=== PATIENT | male | born 1945 | race Caucasian/White ===

== ENCOUNTER → 2016-12-12 | Outpatient (CLI) | payer OTHER, BC ==
[~2016-12-12] MED LIST: ASPEC325 PO; CALC500C3 PO; LISI-725 PO; MISCCAP80 PO; NAPR1TAB9 PO; SIMV40TA2 PO
== END | disposition home or self-care (01) ==
LOC: C.LAB 13:19
PROVIDERS: ATTEND Urology
DX: C61 Malignant neoplasm of prostate (principal)

== ENCOUNTER 2017-02-06 19:57 | Emergency (ER) | payer OTHER, BC ==
[~2017-02-06] VITALS: Ht 180.3 cm; Wt 105.8 kg
[2017-02-06 20:00] VITALS: Ht 180.3 cm; Wt 105.8 kg
[2017-02-06] MEDS ORDERED: ACETAMINOPHEN 500 MG TAB PO STA (20:13)
[2017-02-06] MEDS ORDERED: SODIUM CHLORIDE 0.9% 1000ML 1,000 ML IV STA (20:13)
--- NOTE | 2017-02-06 20:19 | EMERGENCY ROOM VISIT NOTE ---
History Report prepared by Tarik: Pipe Bullock Under the Supervision of: Dr. Neo Dtoson M.D. First contact with patient: 20:07 Chief Complaint: CONGESTION Stated Complaint: CHEST CONGESTION,DIARRHEA,ACHES ALL OVER History of Present Illness The patient is a 71 year old male who presents to the Emergency Room with complaints of constant congestion beginning last night. The patient states that he took Tylenol this morning with no relief of his symptoms. He also complains of a cough that is not productive, body aches, rhinorrhea, fever, diarrhea, and mild back pain. He denies vomiting, urinary symptoms, and known recent sick contacts. He notes that he experienced similar symptoms when he was diagnosed with a UTI. He reports that does not have a history of COPD, diabetes, and heart attacks. He reports that he received a flu shot this year. Source of History: patient Onset: last night Position: chest Quality: other (congestion) Timing: constant Associated Symptoms: + fevers, + cough (not productive), + back pain (mild) , + diarrhea, No vomiting, No urinary symptoms Note: He also complains of body aches and rhinorrhea. Review of Systems See HPI for pertinent positives & negatives. A total of 10 systems reviewed and were otherwise negative. Past Medical & Surgical Medical Problems: (1) No chronic problems Surgical Problems: (1) History of cholecystectomy (2) History of prostatectomy Family History Diabetes mellitus FHx: cancer FHx: gallbladder disease Kidney disease Kidney stones Social History Smoking Status: Never Smoker Marital Status: Housing Status: lives with family Occupation Status: retired Current/Historical Medications Scheduled Lisinopril (Zestril), 20 MG PO QAM Mirabegron (Myrbetriq Er), 25 MG PO DAILY Oseltamivir (Tamiflu), 75 MG PO BID Simvastatin (Zocor), 40 MG PO QPM Allergies Coded Allergies: No Known Allergies (Verified , 02/06/17) Physical Exam Vital Signs Date Time Temp Pulse Resp B/P (MAP) Pulse Ox O2 Delivery O2 Flow Rate FiO2 02/06/17 21:29 37.9 70 20 134/71 96 02/06/17 20:08 95 Room Air 02/06/17 20:00 37.7 96 20 147/76 100 Room Air Physical Exam GENERAL: Patient is well appearing and in no acute distress. HEENT: No acute trauma, normocephalic atraumatic, mucous membranes dry, no scleral icterus. Rhinorrhea bilaterally, mild posterior pharyngeal erythema. NECK: No stridor, no adenopathy, no meningismus, trachea is midline. LUNGS: No dyspnea. Clear to auscultation and equal bilaterally. No wheeze, no rhonchi. HEART: Regular rhythm, mildly tachycardic. No murmurs, rubs, gallops appreciated. ABDOMEN: Soft, nontender, bowel sounds positive, no masses appreciated, no peritonitis. BACK: No midline tenderness, no CVA tenderness EXTREMITIES: Normal motion all extremities, no cyanosis, no edema. NEUROLOGIC: Alert and oriented, no acute motor or sensory deficits, no focal weakness, cranial nerves grossly intact. SKIN: No rash, no jaundice, no diaphoresis. Medical Decision & Procedures ER Provider Diagnostic Interpretation: Radiology results and stated below per my review and radiologist interpretation: CHEST ONE VIEW PORTABLE FINDINGS: Atherosclerosis of the aortic arch. Cardiac silhouette normal in size. Lungs and pleural spaces clear. Degenerative changes of the thoracic spine. Upper abdomen normal. IMPRESSION: 1. No acute cardiopulmonary disease. Electronically signed by: Freddy Robin M.D. 02/06/2017 8:23 PM Laboratory Results 02/06/17 20:30 Red Blood Count 4.70, Mean Corpuscular Volume 89.1, Mean Corpuscular Hemoglobin 31.1, Mean Corpuscular Hemoglobin Concent 34.8, Mean Platelet Volume 11.3, Neutrophils (%) (Auto) 84.1, Lymphocytes (%) (Auto) 6.8, Monocytes (%) (Auto) 8.1, Eosinophils (%) (Auto) 0.4, Basophils (%) (Auto) 0.3, Neutrophils # (Auto) 6.30, Lymphocytes # (Auto) 0.51, Monocytes # (Auto) 0.61, Eosinophils # (Auto) 0.03, Basophils # (Auto) 0.02 02/06/17 20:30 Test 02/06/17 20:18 02/06/17 20:30 Influenza Type A Antigen POS for Influ A (NEG) Influenza Type B Antigen Neg for Influ B (NEG) White Blood Count 7.49 K/uL (4.8-10.8) Red Blood Count 4.70 M/uL (4.7-6.1) Hemoglobin 14.6 g/dL (14.0-18.0) Hematocrit 41.9 % (42-52) Mean Corpuscular Volume 89.1 fL (80-100) Mean Corpuscular Hemoglobin 31.1 pg (25-34) Mean Corpuscular Hemoglobin Concent 34.8 g/dl (32-36) Platelet Count 146 K/uL (130-400) Mean Platelet Volume 11.3 fL (7.4-10.4) Neutrophils (%) (Auto) 84.1 % Lymphocytes (%) (Auto) 6.8 % Monocytes (%) (Auto) 8.1 % Eosinophils (%) (Auto) 0.4 % Basophils (%) (Auto) 0.3 % Neutrophils # (Auto) 6.30 K/uL (1.4-6.5) Lymphocytes # (Auto) 0.51 K/uL (1.2-3.4) Monocytes # (Auto) 0.61 K/uL (0.11-0.59) Eosinophils # (Auto) 0.03 K/uL (0-0.5) Basophils # (Auto) 0.02 K/uL (0-0.2) RDW Standard Deviation 45.1 fL (36.4-46.3) RDW Coefficient of Variation 13.8 % (11.5-14.5) Immature Granulocyte % (Auto) 0.3 % Immature Granulocyte # (Auto) 0.02 K/uL (0.00-0.02) Anion Gap 8.0 mmol/L (3-11) Est Creatinine Clear Calc Drug Dose 72.5 ml/min Estimated GFR () 71.8 Estimated GFR (Non- 62.0 BUN/Creatinine Ratio 11.7 (10-20) Calcium Level 8.7 mg/dl (8.5-10.1) Laboratory results as reviewed by me. Medications Administered Medications (Trade) Dose Ordered Sig/Jonas Route Start Time Stop Time Status Last Admin Dose Admin Sodium Chloride 1,000 ml @ 999 mls/hr Q1H1M STAT IV 02/06/17 20:13 02/06/17 21:13 DC 02/06/17 20:41 999 MLS/HR Acetaminophen (Tylenol Tab) 1,000 mg NOW STAT PO 02/06/17 20:13 02/06/17 20:15 DC 02/06/17 20:41 1,000 MG Oseltamivir Phosphate (Tamiflu Cap) 75 mg NOW STAT PO 02/06/17 21:06 02/06/17 21:07 DC 02/06/17 21:20 75 MG ED Course 2007: The patient was evaluated in room B2. A complete history and physical exam was performed. 2012: Acetaminophen 1000mg PO, Sodium Chloride 1000 ml @ 999 mls/hr 2102: I reevaluated and updated the patient. He is feeling better. 2105: Tamiflu Cap 75mg PO 2115: Reevaluated the patient. Discussed results and discharge instructions: he verbalized understanding and agreement. The patient is ready for discharge. Medical Decision Differential: Viral, Pharyngitis, Cellulitis, Pneumonia, Influenza, Meningitis, Sepsis, Bacteremia, UTI/Pyelonephritis, Endocrine, Toxicologic, amongst other pathologies entertained. 71 yr old male with URI symptoms as well as body aches, fatigue, and malaise. Flu A positive. Given fluids and feeling better. Reviewed Flu conservative Tx but with his age/history will go ahead and start Tamiflu after discussing this medication with him and . Stable and breathing comfortably and is ok with plan. Reviewed symptoms RTED. Medication Reconcilliation Current Medication List: was personally reviewed by me Blood Pressure Screening Patient's blood pressure: Elevated blood pressure Blood pressure disposition: Elevated BP felt to be situational Impression Primary Impression: Influenza A Scribe Attestation The scribe's documentation has been prepared under my direction and personally reviewed by me in its entirety. I confirm that the note above accurately reflects all work, treatment, procedures, and medical decision making performed by me. Departure Information Dispostion Home / Self-Care Prescriptions Oseltamivir (Tamiflu) 75 Mg Cap 75 MG PO BID, #10 CAP Prov: Neo Dotson M.D. 02/06/17 Referrals Андрей Sevilla III, M.D. Forms HOME CARE DOCUMENTATION FORM, IMPORTANT VISIT INFORMATION Patient Instructions ED Flu, My [facility]
[2017-02-06] MEDS ORDERED: MYR25 PO (20:22)
--- NOTE | 2017-02-06 20:24 | DIAGNOSTIC IMAGING REPORT ---
CHEST ONE VIEW PORTABLE CLINICAL HISTORY: 71 years-old Male presenting with cough, fever. TECHNIQUE: Portable upright AP view of the chest was obtained. COMPARISON: None. FINDINGS: Atherosclerosis of the aortic arch. Cardiac silhouette normal in size. Lungs and pleural spaces clear. Degenerative changes of the thoracic spine. Upper abdomen normal. IMPRESSION: 1. No acute cardiopulmonary disease. Electronically signed by: Freddy Robin M.D. 02/06/2017 8:23 PM Dictated Date/Time: 02/06/2017 8:22 PM
[2017-02-06 20:45] LABS: BASO % 0.3 %; BASO ABS # 0.02 K/uL (0-0.2); COMPLETE YES; EOS % 0.4 %; HEMATOCRIT 41.9 % (42-52); IG% 0.3 %; LYMPH % 6.8 %; LYMPH ABS # 0.51 K/uL (1.2-3.4); MEAN CELL VOLUME 89.1 fL (80-100); MEAN CORPUSCULAR HEMOGLOBIN 31.1 pg (25-34); MEAN CORPUSCULAR HGB CONC 34.8 g/dl (32-36); MEAN PLATELET VOLUME 11.3 fL (7.4-10.4); MONO % 8.1 %; NEUT % 84.1 %; PLATELET COUNT 146 K/uL (130-400); WHITE BLOOD COUNT 7.49 K/uL (4.8-10.8)
[2017-02-06 21:04] LABS: BUN/CREATININE RATIO 11.7 (10-20); CALCIUM 8.7 mg/dl (8.5-10.1); CREATININE 1.19 mg/dl (0.60-1.40)
[2017-02-06] MEDS ORDERED: OSELTAMIVIR PHOSPHATE 75 MG CAP PO STA (21:06)
[2017-02-06] MEDS ORDERED: OSEL75CA12 PO (21:07)
[2017-02-06 21:29] VITALS: BP 134/71; PULSE 70; TEMP 37.9; O2SAT 96
== END 2017-02-06 21:31 | disposition home or self-care (01) ==
LOC: C.EDB 19:58
DX: J09.X2 Influenza due to identified novel influenza A virus with other respiratory manifestations (principal); Z87.440 Personal history of urinary (tract) infections; Z90.49 Acquired absence of other specified parts of digestive tract; Z98.890 Other specified postprocedural states; Z79.899 Other long term (current) drug therapy; Z83.3 Family history of diabetes mellitus; Z80.9 Family history of malignant neoplasm, unspecified; Z83.79 Family history of other diseases of the digestive system; Z84.1 Family history of disorders of kidney and ureter

== ENCOUNTER → 2017-09-22 | Outpatient (CLI) | payer OTHER, BC ==
[~2017-09-22] MED LIST changes: -ASPEC325 PO; -CALC500C3 PO; -MISCCAP80 PO; +MYR25 PO; -NAPR1TAB9 PO
--- NOTE | 2017-09-22 10:33 | DIAGNOSTIC IMAGING REPORT ---
R INJ MAJOR JNT SHLDR,HIP,KNEE CLINICAL HISTORY: DJD RT HIPpain COMPARISON STUDY: None FLUOROSCOPY TIME: 10 seconds. FINDINGS: Following description of the procedure and informed consent, a 25-gauge needle was inserted to the right hip joint space. Test injection confirmed its intra-articular location. This is followed by therapeutic steroid injection per physician order. IMPRESSION: Successful therapeutic right hip joint injection The above report was generated using voice recognition software. It may contain grammatical, syntax or spelling errors. Electronically signed by: Hernán Javed M.D. 09/22/2017 10:32 AM Dictated Date/Time: 09/22/2017 10:31 AM
== END | disposition home or self-care (01) ==
LOC: C.RADBC 09:26
PROVIDERS: ATTEND Orthopaedic Surgery
DX: M16.11 Unilateral primary osteoarthritis, right hip (principal)

== ENCOUNTER → 2017-10-05 | Outpatient (CLI) | payer OTHER, BC ==
--- NOTE | 2017-10-05 14:29 | DIAGNOSTIC IMAGING REPORT ---
LEFT HIP INJECTION UNDER FLUOROSCOPIC GUIDANCE CLINICAL HISTORY: Degenerative joint disease. Steroid injection. PROCEDURE: The risks, benefits, and alternatives to the procedure were discussed with the patient. Written informed consent was obtained. The patient was placed supine on the fluoroscopy table, and a left hip injection was performed under fluoroscopic guidance. The area was prepped and draped in the usual sterile fashion. The skin and soft tissues anesthetized with local 1% lidocaine. The left hip joint was accessed utilizing a 22-gauge needle, and intra-articular positioning was confirmed by injecting a small volume of Optiray 300. The prescribed dosage of 5 cc of 0.5% bupivacaine and 2 cc of betamethasone was then injected into the joint space. A single spot fluoroscopic image was saved. The procedure was well tolerated and without immediate complication. The patient left the department in satisfactory condition. FLUOROSCOPY TIME: 8 seconds. IMPRESSION: Successful steroid injection of the left hip under fluoroscopic guidance. Electronically signed by: Niels Urias M.D. 10/05/2017 2:27 PM Dictated Date/Time: 10/05/2017 2:26 PM
== END | disposition home or self-care (01) ==
LOC: C.RADBC 12:56
PROVIDERS: ATTEND Orthopaedic Surgery
DX: M16.12 Unilateral primary osteoarthritis, left hip (principal)

== ENCOUNTER 2019-04-26 06:27 | Observation (INO) ==
--- NOTE | 2019-03-29 08:45 | PAT Medication Instructions ---
Medication Instructions Date of Service March 29, 2019 Home Medications acetaminophen [Tylenol Arthritis Pain] 1,300 mg PO Q8H PRN calcium carbonate [Tums] 1 tab PO DAILY PRN ibuprofen [Advil] 400 mg PO QID PRN lisinopril 40 mg PO QAM simvastatin 40 mg PO HS L. gasseri-B. bifidum-B longum [[facility]] 1 cap PO QAM ferrous sulfate [iron] 325 mg PO QAM ASK your surgeon for instructions ibuprofen [Advil] 400 mg PO QID PRN DO NOT take the morning of surgery calcium carbonate [Tums] 1 tab PO DAILY PRN lisinopril 40 mg PO QAM L. gasseri-B. bifidum-B longum [[facility]] 1 cap PO QAM ferrous sulfate [iron] 325 mg PO QAM Take morning of surgery With a small sip of water, OTHERWISE NOTHING TO EAT OR DRINK AFTER MIDNIGHT: acetaminophen [Tylenol Arthritis Pain] 1,300 mg PO Q8H PRN (okay to take up to 4 hours prior to surgery if needed) Take evening before surgery acetaminophen [Tylenol Arthritis Pain] 1,300 mg PO Q8H PRN (if needed) calcium carbonate [Tums] 1 tab PO DAILY PRN (if needed) simvastatin 40 mg PO HS Other Notes If you have any questions please call us at [phone] or [phone] or [phone] or [phone]
--- NOTE | 2019-04-01 10:18 | Anesthesiology Consultation ---
Date of Service April 01, 2019 Assessment & Plan (1) Encounter for pre-operative examination: Chart Review Chart Review: Acceptable Risk for Surgery and Patient seen in Pre Admission Testing Teaching & Discussion Pre-Anesthesia Teaching/Discussion Notes: Instructed NPO after midnight before surgery,except medications with 15 cc of water. Medication instructions provided according to the PAT guidelines. History Surgery Operation Date: 04/26/19 08:50 Proposed Procedures p Left Total Knee Arthroplasty - Ramone Esteves, Height/Weight Height: 5 ft 11 in Weight: 107.5 kg Allergies Allergy/AdvReac Type Severity Reaction Status Date / Time oxycodone [From OxyContin] Allergy Unknown RASH AND Verified 04/01/19 09:09 ITCHING Medications Home Medications Medication Instructions Recorded Confirmed Last Taken acetaminophen [Tylenol Arthritis 1,300 mg PO Q8H PRN 12/05/17 04/01/19 01/11/18 22:00 Pain] calcium carbonate [Tums] 1 tab PO DAILY PRN 12/05/17 04/01/19 Unknown ibuprofen [Advil] 400 mg PO QID PRN 12/05/17 04/01/19 Unknown lisinopril 40 mg PO QAM 12/05/17 04/01/19 01/11/18 08:00 simvastatin 40 mg PO HS 12/05/17 04/01/19 01/11/18 19:00 L. gasseri-B. bifidum-B longum 1 cap PO QAM 03/25/19 04/01/19 Unknown [[email or web address]] ferrous sulfate [iron] 325 mg PO QAM 03/25/19 04/01/19 Unknown Past Medical History Medical History Bakers cyst left knee Hearing deficit + hearing aids History of kidney stones History of prostate cancer 2000- s/p prostatectomy/XRT Hyperlipidemia Hypertension Obesity Osteoarthritis Exercise / Class Metabolic Activity III < 4 Walking/Shop/Light housework Past Family History Family History Mother Family history of diabetes mellitus Past Surgical History Surgical History History of cholecystectomy History of prostatectomy History of right hip replacement Right PATRICIA: 01/12/18: SAB x 1 attempt at L4-L5 at [facility] History of tooth extraction Hx of colonoscopy Hx of total knee replacement right Past Anesthesia History No Hx of Anesthesia Complications and No Family Hx of Anesthesia Complications History of PONV No Hx of PONV and No Hx of Motion Sickness Social History Smoking Status: Former smoker Do You Dip or Chew Tobacco: No Smoking End Date: Quit 50 YR AGO Hx Alcohol Use: Yes Alcohol type: beer alcohol intake frequency: holidays/special occasions only Hx Substance Use: No Review of Systems Patient denies chest pain, shortness of breath, cough, wheezing, palpitations. Physical Exam Vital Signs VITALS BP 130/79 P 80 TEMP 97.6 SP02 94%RA RESP 18 PHYSICAL Full neck and c-spine range of motion. Full TMJ range of motion. TMD 3 finger breaths Mallampati Score 3 Dentition: intact, crowns on molars Lungs: clear throughout to auscultation Cardiac: regular rate and rhythm, no murmurs noted Spine: normal Carotid arteries: negative bruit Extremities: no edema Testing Laboratory Results 04/01/19 10:36 04/01/19 10:36 PT 10.1 Seconds (9.0-12.0) 04/01/19 10:36 INR 1.0 (0.9-1.1) 04/01/19 10:36 APTT 21.4 Seconds (21.0-31.0) 04/01/19 10:36 Hemoglobin A1c 5.9 % (4.5-5.6) H 04/01/19 10:36 Blood Type A Positive 04/01/19 10:36 Antibody Screen NEGATIVE 04/01/19 10:36 Electrocardiogram Date: 04/01/19 NSR at 77bpm. RBBB. Chest X-Ray Date: 04/01/19 Findings: + NAD Stress Test Date: 10/01/18 Type: exercise Stress ECHO negative for inducible ischemia. Mild cLVH. Grade 1 diastolic dysfunction. No significant valvular disease. 104% MPHR. 6.7 METS. EF 55-60%.
--- NOTE | 2019-04-01 10:59 | XRay Report ---
XR chest Pre-admission PA/Lat CLINICAL HISTORY: Preoperative chest COMPARISON STUDY: 12/11/2017 FINDINGS: The heart is the upper limits of normal in size. There is no failure. There is no focal pul monary consolidation. There are no pleural effusions.[ IMPRESSION: No active disease in the chest. ACT 112: Negative or not required by law. Electronically signed by: Enrike Navarrete M.D. 04/01/2019 10:58 AM
[2019-04-01 11:23] LABS: Basophils # (auto) 0.05 K/uL (0-0.2); Basophils % (auto) 0.6 %; Eosinophils # (auto) 0.25 K/uL (0-0.5); Hematocrit (blood only) 40.9 % (42-52); Hemoglobin 13.6 g/dL (14.0-18.0); Immature Granulocytes # (auto) 0.04 K/uL (0.00-0.02); Immature Granulocytes % (auto) 0.5 %; Lymphocytes # (auto) 1.63 K/uL (1.2-3.4); Lymphocytes % (auto) 19.7 %; Mean Corpuscular Hemoglobin 31.3 pg (25-34); Mean Corpuscular Hgb Conc 33.3 g/dL (32-36); Mean Platelet Volume 12.2 fL (7.4-10.4); Monocytes # (auto) 0.43 K/uL (0.11-0.59); Monocytes % (auto) 5.2 %; Neutrophils # (auto) 5.88 K/uL (1.4-6.5); Platelet Count 213 K/uL (130-400); RDW Coefficient of Variation 14.6 % (11.5-14.5); RDW Standard Deviation 49.6 fL (36.4-46.3); Red Blood Count 4.35 M/uL (4.7-6.1); White Blood Count 8.28 K/uL (4.8-10.8)
[2019-04-01 11:32] LABS: BUN Creatinine Ratio 15.6 (10-20); Calcium 9.5 mg/dl (8.5-10.1); Creatinine Clr Calc Pharmacy 67.6 ml/min; Est GFR (African American) 66.7; Est GFR (Non-African American) 57.6; Potassium 5.1 mmol/L (3.5-5.1)
[2019-04-01 11:37] LABS: Partial Thromboplastin Ratio 0.8; Partial Thromboplastin Time 21.4 Seconds (21.0-31.0); Prothrombin Time 10.1 Seconds (9.0-12.0)
[2019-04-01 12:40] LABS: Estimated Average Glucose 123 mg/dl; Hemoglobin A1C 5.9 % (4.5-5.6)
--- NOTE | 2019-04-02 06:07 | Electrocardiogram Report ---
Test Reason : Blood Pressure : / mmHG Vent. Rate : 077 BPM Atrial Rate : 077 BPM P-R Int : 174 ms QRS Dur : 126 ms QT Int : 416 ms P-R-T Axes : 062 079 023 degrees QTc Int : 470 ms Normal sinus rhythm Right bundle branch block Abnormal ECG When compared with ECG of 11-DEC-2017 11:57, No significant change was found Confirmed by Macho Rangel ([id number]) on 04/02/2019 6:06:38 AM Referred By: Ramone Esteves Confirmed By:Macho Rangel
[~2019-04-26 06:27] MED LIST changes: +ACETAMINOPHEN 500 MG TAB PO SCH; +CEFAZOLIN 2000MG 2,000 MG/15 ML SYR IV SCH; +FAMOTIDINE 20 MG TAB PO SCH; +GABAPENTIN 300 MG CAP PO SCH; -LISI-725 PO; +LR 500ML BOLUS, THEN 15ML/HR IV SCH; +LR 60ML/HR IV SCH; -MYR25 PO; +ROPIVACAINE 0.5% HCL/PF 150 MG, BUPIVACAINE 0.5% MPF 30 ML, EPINEPHrine 30MG/30ML (OR U... INSTIL SCH; -SIMV40TA2 PO; +TRANEXAMIC ACID 1,000 MG **IV Intra-op IV SCH; +TRANEXAMIC ACID 1,000 MG **IV Pre-op IV SCH; +dexAMETHasone 4 MG TAB PO SCH
[2019-04-26] MEDS ORDERED: BUPIVACAINE 0.5 % 5 MG/1 ML PF 10ML VIAL ONE (06:32)
[2019-04-26] MEDS ORDERED: ROPIVACAINE 0.5% 5 MG/ML 30 ML VIAL ONE (06:32)
--- NOTE | 2019-04-26 06:44 | History & Physical Report ---
Date of Service April 26, 2019 Assessment & Plan (1) Osteoarthritis of left knee: We will proceed with a left total knee arthroplasty. Postoperatively he will be placed on aspirin for DVT prophylaxis and kept overnight in the hospital for postoperative medical management. He plans to use energy physical therapy upon discharge. Wolf is a moderate risk for knee replacement surgery. Present on Admission?: Yes History of Present Illness Chief Complaint: Primary osteoarthritis of the left knee Primary Care Provider: Андрей Sevilla MD Wolf is a pleasant 73-year-old male who is been complaining of chronic increasing left knee pain. X-rays clinical examination are diagnostic for primary osteoarthritis of the left knee. He has a history of a right knee replacement done in November 2014 and has done well with that. After failing years of conservative treatment with his left knee, he has elected to proceed with a left total knee arthroplasty. Allergies Allergy/AdvReac Type Severity Reaction Status Date / Time oxycodone [From OxyContin] Allergy Unknown RASH AND Verified 04/01/19 09:09 ITCHING Home Medications Home Medications Medication Instructions Recorded Confirmed Type acetaminophen [Tylenol Arthritis 1,300 mg PO Q8H PRN 12/05/17 04/01/19 History Pain] calcium carbonate [Tums] 1 tab PO DAILY PRN 12/05/17 04/01/19 History ibuprofen [Advil] 400 mg PO QID PRN 12/05/17 04/01/19 History lisinopril 40 mg PO QAM 12/05/17 04/01/19 History simvastatin 40 mg PO HS 12/05/17 04/01/19 History L. gasseri-B. bifidum-B longum 1 cap PO QAM 03/25/19 04/01/19 History [[facility]] ferrous sulfate [iron] 325 mg PO QAM 03/25/19 04/01/19 History Past Med/Surg History Medical History Bakers cyst left knee Hearing deficit + hearing aids History of kidney stones History of prostate cancer 1999- s/p prostatectomy/XRT Hyperlipidemia Hypertension Obesity Osteoarthritis Surgical History History of cholecystectomy History of prostatectomy History of right hip replacement Right PATRICIA: 01/12/18: SAB x 1 attempt at L4-L5 at [facility] History of tooth extraction Hx of colonoscopy Hx of total knee replacement right Family History Mother Family history of diabetes mellitus Social History Preferred Language: Cymro Communication Ability: Effective Beliefs That Will Affect Care: None marital status: Current Living Situation: Spouse Feels Safe at Home: Yes Safety Concerns: Feels Safe At This Time Smoking Status: Former smoker Do You Dip or Chew Tobacco: No ; Smoking End Date: Quit 50 YR AGO ; Second Hand Exposure: No ; Hx Alcohol Use: Yes Alcohol type: beer Hx Substance Use: No Review of Systems Review of Systems: All systems reviewed & are unremarkable except as noted in HPI & below Physical Exam Constitutional: WD/WN, vitals as above Eyes: PERRL, conjunctivae normal, anicteric sclerae ENMT: external ear and nose normal, oropharynx normal Neck: trachea midline, no thyromegaly Respiratory: normal respiratory effort Cardiovascular: RRR, no murmur, no edema Gastrointestinal (Abdomen): normal bowel sounds, soft, nontender, no hepatosplenomegaly Musculoskeletal: On physical examination of the left knee there is a trace effusion. There is near full range of motion and no evidence of instability. There is significant tenderness palpation along the medial and lateral joint lines and over the distal femoral condyles. Psychiatric: A+Ox3, euthymic affect Results & Data Diagnostic Findings Radiographs of the left knee demonstrate advanced osteoarthritis with joint space narrowing osteophyte formation and hise-ew-suld articulation. PG Care Time/CCT Total # of Minutes Spent Total Time Spent with Patient: Total time spent is greater than 50% in coordination of care (as documented) at patient's floor/unit and/or counseling patient: Coding Level of Care Code 56966 Initial Inpt Care Lvl 3 Diagnoses Osteoarthritis of left knee M17.12
[2019-04-26] MEDS ORDERED: MIDAZOLAM HCL 1 MG/ML 2ML VIAL ONE ×2 (06:56)
[2019-04-26] MEDS ORDERED: ORTHO JOINT ANESTHETIC ONE (07:05)
[2019-04-26] MEDS ORDERED: LIDOCAINE HCL 2% 2 ML VIAL/AMP(20MG/ML) INFIL ONE (08:49)
[2019-04-26] MEDS ORDERED: PROPOFOL IV EMULSION 10 MG/ML 20 ML VIAL IV ONE ×2 (08:49→09:35)
[2019-04-26] MEDS ORDERED: PHENYLEPHRINE 100MCG/ML 5ML SYR ONE (09:18)
--- NOTE | 2019-04-26 10:27 | Anesthesiology Progress Note ---
Date of Service April 26, 2019 Anesthesia Post Procedure Vital Signs Vital Signs: Temp Pulse Pulse Resp BP Pulse Ox 04/26/19 10:15 79 15 95/63 L 98 04/26/19 10:09 36.7 C 83 16 112/66 98 04/26/19 07:06 36.7 C 88 22 143/74 H 94 Pain Intensity Left Posterior Knee: Pain Intensity: 1 Transfer of Care Handoff Completed per policy Notes Mental Status: alert / awake / arousable Patient Amnestic to Procedure: Yes Nausea / Vomiting: adequately controlled Pain: adequately controlled Airway Patency, RR, SpO2: stable & adequate BP & HR: stable & adequate Hydration State: stable & adequate Anesthetic Complications: no major complications apparent
--- NOTE | 2019-04-26 10:28 | XRay Report ---
XR knee LT 1 or 2V routine HISTORY: 73 years-old Male Surgical Post Op left knee total joint arthroplasty COMPARISON: Knee radiographs 12/31/2018 TECHNIQUE: 2 views of the left knee FINDINGS: Left knee total joint arthroplasty and patella resurfacing. Satisfactory alignment without acute frac ture or retained foreign body. Anterior midline skin kristopher are noted along with expected postsurgic al soft tissue swelling and deep tissue air with surgical drainage catheter. IMPRESSION: Left knee total joint arthroplasty and patella resurfacing with expected postoperative ch anges. ACT 112: Negative or not required by law. The above report was generated using voice recognition software. It may contain grammatical, syntax o r spelling errors. Electronically signed by: Oniel Jesus M.D. 04/26/2019 10:27 AM
[2019-04-26] MEDS ORDERED: METOCLOPRAMIDE HCL INJ 5 MG/ML 2 ML VIAL IV PRN (11:02)
[2019-04-26] MEDS ORDERED: MAGNESIUM HYDROXIDE SUSP 30 ML UDC PO PRN (11:02)
[2019-04-26] MEDS ORDERED: HYDROCODONE/ACETAMOPHEN 5/325MG TAB PO PRN ×2 (11:02→13:30)
[2019-04-26] MEDS ORDERED: ONDANSETRON INJ 2 MG/ML 2 ML VIAL IV PRN (11:02)
[2019-04-26] MEDS ORDERED: HYDROmorphone INJ 0.5 MG/0.5 ML SYR IV PRN (11:02)
[2019-04-26] MEDS ORDERED: NALOXONE HCL 0.4 MG/1 ML VIAL/CARP IV PRN (11:02)
[2019-04-26] MEDS ORDERED: bisacodyL 10 MG SUPP PR PRN (11:02)
[2019-04-26] MEDS: SODIUM CHLORIDE 0.9% 1000ML 1,000 ML IV SCH ×2 (12:38→21:42)
[2019-04-26] MEDS: KETOROLAC TROMETHAMINE 15 MG/ML VIAL IV SCH ×2 (12:42→18:15)
[2019-04-26] MEDS: ACETAMINOPHEN 500 MG TAB PO SCH ×2 (13:31→21:42)
[2019-04-26] MEDS: CEFAZOLIN 2000MG 2,000 MG/15 ML SYR IV SCH (17:10)
[2019-04-26] MEDS: DOCUSATE SODIUM 100 MG CAP PO SCH (20:10)
[2019-04-26] MEDS: ASPIRIN 81 MG ECTAB PO SCH (20:11)
[2019-04-26] MEDS ORDERED: SENNA 8.6 MG TAB PO SCH (21:00)
[2019-04-26] MEDS ORDERED: SIMVASTATIN 40 MG TAB PO SCH (21:00)
[2019-04-27] MEDS: KETOROLAC TROMETHAMINE 15 MG/ML VIAL IV SCH ×2 (00:02→05:40)
[2019-04-27] MEDS: CEFAZOLIN 2000MG 2,000 MG/15 ML SYR IV SCH (00:02)
[2019-04-27] MEDS: ACETAMINOPHEN 500 MG TAB PO SCH (05:40)
[2019-04-27 06:04] LABS: Hematocrit (blood only) 33.7 % (42-52); Hemoglobin 11.3 g/dL (14.0-18.0); Mean Corpuscular Hemoglobin 31.2 pg (25-34); Mean Corpuscular Hgb Conc 33.5 g/dL (32-36); Mean Corpuscular Volume 93.1 fL (80-100); Mean Platelet Volume 11.8 fL (7.4-10.4); Platelet Count 185 K/uL (130-400); RDW Coefficient of Variation 13.8 % (11.5-14.5); RDW Standard Deviation 47.1 fL (36.4-46.3); Red Blood Count 3.62 M/uL (4.7-6.1); White Blood Count 17.48 K/uL (4.8-10.8)
[2019-04-27 06:30] LABS: BUN Creatinine Ratio 22.3 (10-20); Calcium 8.2 mg/dl (8.5-10.1); Creatinine Clr Calc Pharmacy 58.6 ml/min; Est GFR (African American) 56.2; Est GFR (Non-African American) 48.5; Potassium 4.6 mmol/L (3.5-5.1)
--- NOTE | 2019-04-27 07:38 | Orthopedic Progress Note ---
Date of Service April 27, 2019 Assessment & Plan (1) History of left knee replacement: Overall he is doing very well. He is not having much pain in the left knee. He will be seen by physical therapy today for ambulation and range of motion exercises. He is on aspirin for DVT prophylaxis. He can be discharged home later today. He will follow-up with orthopedics in 2 weeks. Present on Admission?: Yes Subjective Ed was seen and examined at bedside this morning. Overall is doing very well. Is not having much pain in his left knee. He was up and ambulating around the nurses station yesterday. He has no complaints. Physical Exam Musculoskeletal: On physical examination of the left knee, the dressing is clean and dry. He has active dorsiflexion and plantarflexion of his left ankle. His left knee is out to full extension. Results & Data ([facility]) Vital Signs (Past 12 Hours) Vital Signs Temp Pulse Resp BP Pulse Ox 04/27/19 03:18 36.6 C 100 H 18 136/71 95 04/26/19 23:42 36.8 C 102 H 18 125/71 95 Laboratory Results H & H 04/01/19 04/27/19 Range/Units 10:36 05:09 Hgb 13.6 L 11.3 L (14.0-18.0) g/dL Hct 40.9 L 33.7 L (42-52) % Coagulation 04/01/19 Range/Units 10:36 INR 1.0 (0.9-1.1) Diagnostic Findings Postoperative x-rays of the left knee show the prosthesis to be in anatomic alignment without any evidence of fracture, dislocation, or loosening. PG Care Time/CCT Total # of Minutes Spent Total Time Spent with Patient: Total time spent is greater than 50% in coordination of care (as documented) at patient's floor/unit and/or counseling patient: Coding Level of Care Code None Diagnoses History of left knee replacement Z96.652
--- NOTE | 2019-04-27 07:39 | Discharge Summary ---
Date of Service April 27, 2019 Admission HPI Per Admitting Provider Wolf is a pleasant 73-year-old male who is been complaining of chronic increasing left knee pain. X-rays clinical examination are diagnostic for primary osteoarthritis of the left knee. He has a history of a right knee replacement done in November 2014 and has done well with that. After failing years of conservative treatment with his left knee, he has elected to proceed with a left total knee arthroplasty. Principal Diagnosis Left total knee arthroplasty Discharge Data Allergies Allergy/AdvReac Type Severity Reaction Status Date / Time oxycodone [From OxyContin] Allergy Intermediate RASH AND Verified 04/26/19 06:54 ITCHING Consultations 04/26/19 11:02 Consult Case Management - Discharge Planning Routine Procedures Performed Operation Date: 04/26/19 08:30 Actual Procedures p Left Total Knee Arthroplasty(Left) - Ramone Esteves DO Ordered Studies 04/26/19 08:10 US - OR guided needle placemen Routine Hospital Course (1) History of left knee replacement: On April 26, 2019 Ed arrived at [facility] and underwent a left total knee arthroplasty without complication. He had a spinal anesthetic. Postoperatively he was started on aspirin for DVT prophylaxis and transferred to the general orthopedic floors. His hospital course was uneventful. On postop day #1 his H&H was stable and his pain was well controlled. He was able to participate well with physical therapy doing ambulation and range of motion exercises. He was then discharged home. He will follow-up with orthopedics in 2 weeks. Total Time Total Time Spent Total Time Spent (In Minutes): 20 Discharge Plan Discharge Items Patient Disposition: Home - Home Health Services Reason For Visit: Left Knee Degenerative Joint Disease Discharge Diagnosis: Left total knee arthroplasty Activity: As commented below Non-emergency contact: Surgeon Call non-emergency contact if: your wound has increased redness and your wound has increased drainage Follow-up/Referrals: Андрей Sevilla MD [Primary Care Provider] - Diet: Regular Addtl Attending Provider Instructions: Activity and Therapy Recommendations: * If you are using [facility] then therapy will be provided at your home until they feel you have accomplished all of your goals. * If you are using [facility] then Physical Therapy will be provided until they feel you are ready to start Outpatient Physical Therapy. * If you are not using home therapy then Outpatient Physical Therapy should st art about 3-5 days from your day of surgery. Therapy will last about 6-10 weeks * It is important not to put a pillow under your knee when you are relaxing or sleeping. It is just as important to make sure you are getting your knee perfectly straight as it is to regain your knee bend. * You were shown a series of exercises in the hospital. Do these exercises three times each day including the exercises you were shown in physical therapy. * Get up and walk several times each day. For the first four weeks, try not to stand or walk for more than one hour at a time. If you do stand or walk for mo re than one hour, you will not hurt anything, but your leg will likely swell. * As you feel comfortable, you may change from the walker or crutches to a cane and then to independent walking. Medications: * Narcotic You will likely be sent home from the hospital with a prescription for the narcotic pain medication that worked best throughout your stay. * Aspirin Most patients will be required to take Aspirin 81mg twice a day for 6 weeks after surgery. This is obtained [id number]-dclbrir and a prescription is not necessary. * Other medications may be prescribed for specific circumstances. If you have any questions, please call the office at . * Resume previous home medications unless otherwise instructed TEDs/Elastic Stockings: The white elastic stockings help limit swelling and prevent blood clots from forming in your legs.~ The more you wear them, the more they work. Wear them for six weeks. Dressing Care: If the incision is not draining then you may leave the kristopher open to air. If there is a little bit of drainage or if the kristopher are getting stuck on your clothing then cover the incision with a dry dressing. The kristopher will be removed at your 2 week follow-up appointment. Showering: You may shower 5 days from the day of surgery. Let the soapy shower water run over the kristopher and pat them dry. Do not scrub or soak the incision. Things To Watch For: * Drainage from the incision site that occurs more than one week after your surgery. * Increased redness at the incision site. * Fever above 102 degrees Fahrenheit. * Unusual chest pain or shortness of breath. * Call [facility] at with any of the above problems Follow-Up Visit: Follow-up with Dr. Esteves 2-3 weeks after your day of surgery. An appointment was probably scheduled when you signed-up for surgery in the office. If you have any questions call Office Instructions: More detailed instructions as well as Frequently Asked Questions were provided in a folder by our office when you signed-up for surgery. Please review these instructions when you get home. If you have any further questions or concerns, please feel free to call the office at [phone] Pending Studies at Discharge: No Stand-Alone Forms: [facility] Medications and DC Order Prescriptions: New hydrocodone-acetaminophen [[place]] 5-325 mg Tablet 1 tab PO Q6 PRN (Reason: pain) Qty: 30 RF: 0 aspirin 81 mg Tablet,Delayed Release (Dr/Ec) 81 mg PO BID 42 Days Qty: 0 RF: 0 Continued simvastatin 40 mg Tablet 40 mg PO HS RF: 0 acetaminophen [Tylenol Arthritis Pain] 650 mg Tablet Extended Release 1,300 mg PO Q8H PRN (Reason: Pain) RF: 0 calcium carbonate [Tums] 200 mg calcium (500 mg) Tablet,Chewable 1 tab PO DAILY PRN (Reason: Heartburn) RF: 0 ibuprofen [Advil] 200 mg Tablet 400 mg PO QID PRN (Reason: Pain) RF: 0 lisinopril 40 mg Tablet 40 mg PO QAM RF: 0 Metaversum 1.5 billion cell Capsule 1 cap PO QAM RF: 0 Discharge Orders: Discharge Order (Routine); Ordered 04/27/19 Ordered By: Ramone Esteves Admission Data Admit Date/Time: 04/26/19 10:14 Attending Provider: Ramone Esteves Admit Provider: Ramone Esteves Primary Care Provider: Андрей Sevilla Coding Level of Care Code D/C Day Management <30 mins Diagnoses History of left knee replacement Z96.652
[2019-04-27] MEDS ORDERED: dexAMETHasone 4 MG TAB PO SCH (08:00)
[2019-04-27] MEDS: DOCUSATE SODIUM 100 MG CAP PO SCH (08:24)
[2019-04-27] MEDS: ASPIRIN 81 MG ECTAB PO SCH (08:24)
[2019-04-27] MEDS ORDERED: MULTIVITAMIN TAB PO SCH (09:00)
[2019-04-27] MEDS ORDERED: lisinopriL 40 MG TAB PO SCH (09:00)
--- NOTE | 2019-05-02 12:27 | Operative Report ---
PG Post Operative Report Pre & Post Diagnosis Operation Date: 04/26/19 08:30 Pre-Op Diagnosis: Left Knee Degenerative Joint Disease Post-Op Diagnosis: Left Knee Degenerative Joint Disease I identified the patient and participated in the time-out.: Yes Procedure Operation Date: 04/26/19 08:30 Actual Procedures p Left Total Knee Arthroplasty(Left) - Ramone Esteves DO Surgeon Ramone Esteves DO Purchasing Buyer Ramone Garrison PAC Estimated Blood Loss 10 Findings Consistent with Post-Op Diagnosis Specimens Femoral and tibial bone Complications none Disposition Disposition: Recovery Room Indications 83-year-old male who is been complaining of chronic increasing left knee pain. X-rays and clinical examination were diagnostic for primary osteoarthritis of the left knee. After failing conservative treatment, he elected to proceed with a left total knee arthroplasty. Description of Procedure Implants used: I used a [employer] Vanguard total knee arthroplasty system with a size 75 femur, 79 tibia, 34 patella, and a size 14 PS plus polyethylene bearing. All components were cemented in place with Palacos G cement. Wolf arrived [facility] for the above procedure. He was see n in the preoperative holding area and the operative extremity was identified and signed. He was given a preoperative antibiotic, TXA, a spinal anesthetic and an adductor nerve block. He was taken back to the operating room and laid on the table in supine position. He was given basic sedation. The operative knee was then prepped and draped in sterile fashion. A timeout was done, and the patient and the operative extremity was properly identified. A midline incision was made directly over the patella. Dissection was taken down to the extensor mechanism. A subvastus arthrotomy was used. The medial retinaculum was released and the fat pad was mostly excised. The knee was flexed and the ACL, PCL, and meniscus were removed. A drill was sent down the center of the femoral canal followed by an intramedullary adrian. Off that adrian a distal femoral cutting block was placed. 9 mm was resected off the distal femur at 5 of valgus. A posterior referencing AP sizing guide was then placed on the distal femur. The femur measured to be a size 75. 2 drill holes were placed in 3 of external rotation. A 4-in-1 cutting block was then impacted into place. Anterior, posterior, and chamfer cuts were then made. The posterior stabilizing box guide was then impacted into place and the box was resected for the posterior stabilizing component. The proximal tibia was then exposed. A drill was sent down the center of the tibial canal followed by an intramedullary adrian. Off that adrian a proximal tibial resection guide was placed. The proximal tibia was then resected. The tibia measured to be a size 79. The tibial plate was then placed in the appropriate rotation and the tibia was punched. The posterior aspect of the knee was then opened up and any additional meniscus fragments and osteophytes were removed. Trial components were then placed. I used a size 14 PS plus polyethylene insert. The knee was brought through a full range of motion and felt to be stable. The patella was then everted and 8 mm was resected off the posterior aspect of the patella. The patella measured to be a size 34. 3 peg holes were then drilled. A trial patella was placed. The knee was once again brought through a full range of motion and felt to be stable. Trial components were then removed. The surrounding soft tissues were injected with 100 cc of an orthopedic pain control cocktail. All components were then cemented into place with Palacos G cement. The final polyethylene insert was then snapped into place and the anterior bar was locked. Once cement was dry the tourniquet was deflated. Hemostasis was obtained. A dilute betadyne lavage was then done for 3 minutes. The joint was then irrigated with normal saline solution. The subvastus arthrotomy was then closed with #1 Vicryl suture. The skin was closed with 2-0 Vicryl, 3-0V lock suture, and kristopher. A soft compressive dressing was placed. He was then transferred to a hospital bed and taken to the postanesthesia care unit in stable condition. He tolerated the procedure well. Ramone Garrison PA-C, was present for the entire procedure. He was critical for patient positioning, prepping, draping, retraction exposure, wound closure and application of sterile dressing. I attest to the content of the Intraoperative Record and any orders documented therein. Any exceptions are noted below.
== END 2019-04-27 11:40 | disposition home or self-care (01) ==
LOC: ASU 06:27 → 3E 06:27